=== PATIENT | female | born 1955 | race Caucasian/White ===

== ENCOUNTER 2020-10-27 15:31 | Emergency (ER) | payer OTHER, SELFPAY ==
[2020-10-27 15:46] VITALS: BP 101/61; PULSE 92; RESP 18; O2SAT 95
--- NOTE | 2020-10-27 15:50 | ED.GENADUL_ITS ---
Discharge Plan Disposition Patient Disposition: HOME Condition: Stable Discharge Details Clinical Impression: Sprain of foot, left, Sprain of ankle, left Primary Care Provider: Ana,Local ED Provider: Maggy Marmolejo Home Meds and New Rx's Prescriptions: Continued alprazolam [Xanax] 1 mg Tablet 1 mg PO BID PRNRF: 0 tramadol 50 mg Tablet 50 mg PO BID PRNRF: 0 Discharge Instructions Instructions: Ankle Sprain (ED), Foot Sprain (ED) Additional Instructions: Rest, ice, and elevate the affected area as much as possible. Take the tramadol that you have at home as needed and directed for pain. Wear the walking boot as much as possible and use the crutches to help with ambulation over the next few days. You can start to bear weight on your left foot as tolerated in a few days. Follow-up with your scheduled appointment with your primary care doctor this week for reevaluation and for referral to orthopedics if your symptoms do not improve or worsen. Return immediately to the emergency department if you develop any worsening or new concerning symptoms. Referrals: Jose Lockhart MD [ [facility] STAFF PHYSICIAN] - Discharge Data Discharge Physician: Maggy Marmolejo Medical Decision Making 65-year-old female presents with left foot and ankle pain after twisting her ankle on a wet spot on the floor yesterday She has tenderness and edema to the left dorsal lateral foot and lateral malleolus. There is no deformity. She has neurovascular intact. Patient cannot take Tylenol or ibuprofen due to hives. She is declining a dose of tramadol. She was referred for x-rays and given a dose of oxycodone. X-rays reviewed and negative. Patient states she is from the [facility] and does follow-up at [facility]. She has a follow-up appointment with her primary care doctor this week. Advised to discuss with him for any recommendations for follow-up with orthopedics there if symptoms do not improve or worsen. Instructed on the importance of RICE. Walking boot placed and crutches given. Medical Records Medical records reviewed: Yes I reviewed the patient's medical records. Imaging Data Radiologic Study: Radiologist's impression: XR Left Ankle Exam date and time: 10/27/2020 4:21 PM Age: 65 years old Clinical indication: Injury or trauma; Other: Twisted; Sprain or strain; Ankle; Left TECHNIQUE: Imaging protocol: XR Left ankle. Views: 3 or more views. COMPARISON: No relevant prior studies available. FINDINGS: Bones/joints: The ankle mortise joint is intact. There is no sign of malleolar fracture. Soft tissues: Normal. No soft tissue IMPRESSION: Normal ankle XR Left Foot Exam date and time: 10/27/2020 4:21 PM Age: 65 years old Clinical indication: Injury or trauma; Other: Twisted; Sprain or strain; Foot; Left TECHNIQUE: Imaging protocol: XR Left foot. Views: 3 or more views. COMPARISON: CR XR ANKLE LT COMPLETE 27/10/2020 16:44 FINDINGS: Bones/joints: Normal. No fracture or dislocation. No arthropathic change Soft tissues: . Mild soft tissue swelling is present over the dorsum of the forefoot. IMPRESSION: No evidence of bony trauma. HPI General Mode of arrival: ambulatory . Date/Time Provider Initiated Documentation: 10/27/20 15:50 . Limitations to Documentation: no limitations . Information obtained by: patient . HPI Narrative: Patient is a 65-year-old female presents with left foot and ankle pain after twisting her ankle yesterday . Patient states she slipped on a wet spot on the floor and inverted her left ankle. She has been having pain with weightbearing. She states she cannot take Tylenol or ibuprofen due to hives. She takes tramadol as needed and directed for restless leg but states she does not take this very often. Related Data Home Medications Medication Instructions Recorded Confirmed alprazolam [Xanax] 1 mg PO BID PRN 10/27/20 10/27/20 tramadol 50 mg PO BID PRN 10/27/20 10/27/20 Allergies Allergy/AdvReac Type Severity Reaction Status Date / Time acetaminophen Allergy Skin Rash Unverified 10/27/20 17:20 ibuprofen Allergy Skin Rash Unverified 10/27/20 17:20 Penicillins Allergy Skin Rash Unverified 10/27/20 15:56 phenobarbital Allergy Skin Rash Unverified 10/27/20 15:57 muscle relaxers Allergy Skin Rash Uncoded 10/27/20 15:56 Review of Systems All systems reviewed & are unremarkable except as noted in HPI and below PFSH Social History Smoking/Tobacco Use Status: Never Smoking risk assessment performed?: Yes Alcohol Intake: never Drug use: Never Exam Const General: cooperative, healthy appearing and no acute distress HENMT Head: normal to inspection Mouth: oral mucosae normal Eyes General: appearance normal, both eyes and all related structures Neck Neck: normal visual inspection Resp Effort & Inspection: normal respiratory effort and able to speak in complete sentences Cardio Rate: regular rate Skin General skin exam: no rashes or lesions noted Neuro General: patient alert, patient awake and patient oriented x3 Motor: muscle tone normal throughout Extrem Other: Tenderness to palpation and moderate edema to the left lateral dorsal foot and left lateral malleolus. There is no deformity. Left DP/PT pulses intact. No tenderness to palpation to left proximal leg. Psych Appearance: grossly normal Affect: normal affect
--- NOTE | 2020-10-27 16:15 | DI.RAD_ITS ---
Exam(s) XR FOOT LT COMPLETE EXAM: XR FOOT LT COMPLETE CLINICAL HISTORY: s/p twisting injury, r/o fx. TECHNIQUE: 2D digital imaging was performed. COMPARISON: No exams were available for comparison FINDINGS: There is no evidence of acute fracture or diastasis of the Lisfranc joint. Ossified density on the m edial aspect of the foot adjacent to the navicular tuberosity is most probably an accessory ossicle-s esamoid within the distal tibialis posterior tendon. IMPRESSION: No fracture evident. DATA REPOSITORY: RADIATION DOSE DELIVERED:
--- NOTE | 2020-10-27 16:15 | DI.RAD_ITS ---
Exam(s) XR ANKLE LT COMPLETE EXAM: XR ANKLE LT COMPLETE CLINICAL HISTORY: s/p twisting injury, r/o fx. TECHNIQUE: 2D digital imaging was performed. COMPARISON: No exams were available for comparison FINDINGS: No evidence of fracture or widening of the mortise. Talar dome unremarkable. Calcification is noted posteriorly at the insertion site of the Achilles on the posterior calcaneus. No evidence of osseou s tarsal coalition. Bone density is age-appropriate. IMPRESSION: No fracture evident. DATA REPOSITORY: RADIATION DOSE DELIVERED:
[2020-10-27] MEDS: oxyCODONE 5 MG TAB PO (16:28)
--- NOTE | 2020-10-27 17:10 | DI.VRAD_ITS ---
PROCEDURE INFORMATION: Exam: XR Left Foot Exam date and time: 10/27/2020 4:21 PM Age: 65 years old Clinical indication: Injury or trauma; Other: Twisted; Sprain or strain; Foot; Left TECHNIQUE: Imaging protocol: XR Left foot. Views: 3 or more views. COMPARISON: CR XR ANKLE LT COMPLETE 27/10/2020 16:44 FINDINGS: Bones/joints: Normal. No fracture or dislocation. No arthropathic change Soft tissues: . Mild soft tissue swelling is present over the dorsum of the forefoot. IMPRESSION: No evidence of bony trauma. Dictated and Authenticated by: Urbano Arevalo MD. Ordering:MARCI Winter MD
--- NOTE | 2020-10-27 17:11 | DI.VRAD_ITS ---
PROCEDURE INFORMATION: Exam: XR Left Ankle Exam date and time: 10/27/2020 4:21 PM Age: 65 years old Clinical indication: Injury or trauma; Other: Twisted; Sprain or strain; Ankle; Left TECHNIQUE: Imaging protocol: XR Left ankle. Views: 3 or more views. COMPARISON: No relevant prior studies available. FINDINGS: Bones/joints: The ankle mortise joint is intact. There is no sign of malleolar fracture. Soft tissues: Normal. No soft tissue IMPRESSION: Normal ankle. Dictated and Authenticated by: Urbano Arevalo MD. Ordering:MARCI Winter MD
== END 2020-10-27 18:50 | disposition home or self-care (01) ==
PROVIDERS: Emergency Provider Physician Assistant
DX: S93.692A Other sprain of left foot, initial encounter (principal); S93.492A Sprain of other ligament of left ankle, initial encounter; W18.40XA Slipping, tripping and stumbling without falling, unspecified, initial encounter
CPT/HCPCS: 29515; 99284; 73610; 73630; 99283

== ENCOUNTER 2021-01-17 16:52 | Emergency (ER) | payer MEDICARE, SELFPAY ==
--- NOTE | 2021-01-17 17:00 | DI.RAD_ITS ---
Exam(s) XR SHOULDER LT COMPLETE 2+V EXAM: XR SHOULDER LT COMPLETE 2+V CLINICAL HISTORY: Fall, R/O Fracture. TECHNIQUE: 2D digital imaging was performed of the left shoulder. Five images were obtained. AP, G rashey, Y-view and axillary views were obtained. COMPARISON: No exams were available for comparison FINDINGS: BONES: No acute fracture is present. No bony destructive lesion is seen. Osteopenia. JOINTS: No dislocation present. Mild degenerative changes at the acromioclavicular joint. SOFT TISSUE: Normal. IMPRESSION: No acute fracture or dislocation. DATA REPOSITORY: RADIATION DOSE DELIVERED:
--- NOTE | 2021-01-17 17:00 | DI.RAD_ITS ---
Exam(s) XR HUMERUS LT EXAM: XR HUMERUS LT CLINICAL HISTORY: Fall, R/O Fracture. TECHNIQUE: 2D digital imaging was performed of the left humerus. Two images were obtained. AP and lateral views were obtained. COMPARISON: No exams were available for comparison FINDINGS: BONES: No acute fracture is present. No bony destructive lesion is seen. Visualized portion of elbow and shoulder joints are unremarkable. SOFT TISSUE: Normal. IMPRESSION: No acute fracture or dislocation. DATA REPOSITORY: RADIATION DOSE DELIVERED:
[2021-01-17 17:03] VITALS: BP 130/72; PULSE 90; TEMP 36.3; O2SAT 94
--- NOTE | 2021-01-17 17:12 | ED.GENADUL_ITS ---
Discharge Plan Disposition Patient Disposition: HOME Condition: Stable Discharge Details Clinical Impression: Sprain of left shoulder Primary Care Provider: Ana,Local ED Provider: Mounika Ralph Home Meds and New Rx's Prescriptions: New tramadol 50 mg tablet 50 mg PO TID PRN (Reason: pain) Qty: 7 RF: 0 No Action alprazolam [Xanax] 1 mg Tablet 1 mg PO BID PRNRF: 0 tramadol 50 mg Tablet 50 mg PO BID PRNRF: 0 Discharge Instructions Instructions: Shoulder Sprain (ED) Additional Instructions: The xrays today do not show evidence for fracture or any broken bones at this time. Wear splint as needed for comfort when up and about. Rest, Ice, Compression, Elevation . If it continues to bother you in 1-2 weeks, please follow up with Orthopedics. Follow up with primary care provider in 3-5 days. Return to ED sooner if any worsening or concerns. Increase oral fluids. Referrals: Jorge He MD [ [facility] STAFF PHYSICIAN] - 2 weeks Medical Decision Making 65-year-old female presents to the ER with chief complaint of left shoulder left upper arm pain status post a slip and fall yesterday while in her kitchen. Patient states that she was wearing ice cleats and slipped on her linoleum kitchen floor landing on her left shoulder. She is complaining of left shoulder and left upper arm pain. Denies any neck pain no loss of consciousness. She is not taking any medications prior to arrival. No obvious deformity noted on exam patient is alert and oriented. No chest wall tenderness with palpation. No other associated symptoms. Imaging protocol: XR Left humerus. Views: 2 or more views. COMPARISON: No relevant images were readily available for comparison purposes. FINDINGS: Bones/joints: Osteopenia limits evaluation. There is no definite acute fracture or dislocation. Minimal degeneration of the acromioclavicular and glenohumeral joints. Soft tissues: Unremarkable. IMPRESSION: No acute findings. Thank you for allowing us to participate in the care of your patient. Dictated and Authenticated by: Miguel Franco DO Imaging protocol: XR Left shoulder. Views: 2 or more views. COMPARISON: CR XR HUMERUS LT 01/17/2021 5:27 PM FINDINGS: Bones/joints: No acute fracture or dislocation. Osteopenia which limits evaluation. Soft tissues: Slightly increased soft tissue density along the left shoulder/axillary region. IMPRESSION: 1. No acute fracture or dislocation. 2. Slightly increased soft tissue density seen along the left shoulder/axillary region. Query soft tissue edema or hematoma. Thank you for allowing us to participate in the care of your patient. Dictated and Authenticated by: Miguel Franco DO Discussed x-ray results patient verbalized understanding. Patient placed in a sling follow-up with Ortho if continued pain. Patient given tramadol here in the department. This text was generated using Embueation system, please disregard any oddities of phrase or misspellings. HPI General Mode of arrival: ambulatory . Date/Time Provider Initiated Documentation: 01/17/21 16:53 . Limitations to Documentation: no limitations . Information obtained by: patient, RN notes reviewed and old records reviewed . HPI Narrative: 65-year-old female presents to the ER with chief complaint of left shoulder left upper arm pain status post a slip and fall yesterday while in her kitchen. Patient states that she was wearing ice cleats and slipped on her linoleum kitchen floor landing on her left shoulder. She is complaining of left shoulder and left upper arm pain. Denies any neck pain no loss of consciousness. She is not taking any medications prior to arrival. No obvious deformity noted on exam patient is alert and oriented. No chest wall tenderness with palpation. No other associated symptoms. Related Data Home Medications Medication Instructions Recorded Confirmed alprazolam [Xanax] 1 mg PO BID PRN 10/27/20 01/17/21 tramadol 50 mg PO BID PRN 10/27/20 01/17/21 tramadol 50 mg PO TID PRN #7 tab 01/17/21 Previous Rx's Medication Instructions Recorded tramadol 50 mg PO TID PRN #7 tab 01/17/21 Allergies Allergy/AdvReac Type Severity Reaction Status Date / Time acetaminophen Allergy Skin Rash Unverified 01/17/21 17:07 ibuprofen Allergy Skin Rash Unverified 01/17/21 17:07 Penicillins Allergy Skin Rash Unverified 01/17/21 17:07 phenobarbital Allergy Skin Rash Unverified 01/17/21 17:07 muscle relaxers Allergy Skin Rash Uncoded 01/17/21 17:07 General Stated Complaint: Orthopedic ARMANDO: 3 Review of Systems All systems reviewed & are unremarkable except as noted in HPI and below ENT Ears, Nose, Mouth, and Throat: Denies neck pain Musculoskeletal Musculoskeletal: Reports as per HPI, Denies back pain, Denies deformity, Reports arthralgias (Left shoulder), Denies neck pain, Denies numbness and Denies tingling Neurologic Neurologic: Denies numbness and Denies tingling PFSH All Active Problems (Updated 01/17/21 @ 18:06 by Mounika Ralph) Sprain of foot, left (Acute) Sprain of ankle, left (Acute) Sprain of left shoulder (Acute) Social History Smoking/Tobacco Use Status: Never Smoking risk assessment performed?: Yes Alcohol Intake: never Drug use: Never Substance use type: does not use Do you feel safe at home: Yes Do you feel safe in your relationship?: Yes Exam Extrem General: normal to inspection Right upper extremity: normal to inspection Left upper extremity: normal to inspection, normal capillary refill and should er/upper arm (Distal CMS intact) Details: inspection abnormal, tenderness Location: of the proximal humerus and axillary nerve sensory function normal Course Vital Signs Vital signs: Vital Signs Temperature 36.3 C L 01/17/21 17:03 Pulse 90 01/17/21 17:03 Blood Pressure 130/72 01/17/21 17:03 Pulse Oximetry 94 01/17/21 17:03 Temperature 36.3 C L 01/17/21 17:03 Temperature Source Temporal Artery Scan 01/17/21 17:03 Pulse 90 01/17/21 17:03 Respiratory Effort Non-Labored 01/17/21 17:06 Blood Pressure 130/72 01/17/21 17:03 Blood Pressure Position Sitting 01/17/21 17:03 Pulse Oximetry 94 01/17/21 17:03 Oxygen Delivery Method Room Air 01/17/21 17:03 Oxygen Flow Rate 0 01/17/21 17:03 Pain Level 10 01/17/21 17:03
--- NOTE | 2021-01-17 18:04 | DI.VRAD_ITS ---
PROCEDURE INFORMATION: Exam: XR Left Humerus Exam date and time: 01/17/2021 5:12 PM Age: 65 years old Clinical indication: Patient HX: Fall 01/16/2021 left shoulder pain TECHNIQUE: Imaging protocol: XR Left humerus. Views: 2 or more views. COMPARISON: No relevant images were readily available for comparison purposes. FINDINGS: Bones/joints: Osteopenia limits evaluation. There is no definite acute fracture or dislocation. Minimal degeneration of the acromioclavicular and glenohumeral joints. Soft tissues: Unremarkable. IMPRESSION: No acute findings. Dictated and Authenticated by: Miguel Franco MD. Ordering:LANDY Ribera MD
--- NOTE | 2021-01-17 18:05 | DI.VRAD_ITS ---
PROCEDURE INFORMATION: Exam: XR Left Shoulder Exam date and time: 01/17/2021 5:12 PM Age: 65 years old Clinical indication: Other: Fall 01/16/2021 left shoulder pain TECHNIQUE: Imaging protocol: XR Left shoulder. Views: 2 or more views. COMPARISON: CR XR HUMERUS LT 01/17/2021 5:27 PM FINDINGS: Bones/joints: No acute fracture or dislocation. Osteopenia which limits evaluation. Soft tissues: Slightly increased soft tissue density along the left shoulder/axillary region. IMPRESSION: 1. No acute fracture or dislocation. 2. Slightly increased soft tissue density seen along the left shoulder/axillary region. Query soft tissue edema or hematoma. Dictated and Authenticated by: Miguel Franco MD. Ordering:LANDY Ribera MD
[2021-01-17] MEDS: traMADol 50 MG TAB PO (18:19)
[2021-01-17] MEDS: Lidocaine 5% Patch 1 PATCH TP (18:19)
[2021-01-17 18:39] VITALS: BP 130/72; PULSE 90; TEMP 36.3; O2SAT 94
== END 2021-01-17 18:47 | disposition home or self-care (01) ==
LOC: ER 18:27
PROVIDERS: Emergency Provider Registered Nurse Emergency
DX: S43.492A Other sprain of left shoulder joint, initial encounter (principal); W01.0XXA Fall on same level from slipping, tripping and stumbling without subsequent striking against object, initial encounter
CPT/HCPCS: 99284; 73030; 73060; 99283

== ENCOUNTER 2022-07-05 20:03 | Emergency (ER) | payer MEDICARE, MEDICAID, SELFPAY ==
[2022-07-05 20:08] VITALS: BP 147/65; PULSE 102; RESP 16; TEMP 36.7; O2SAT 97
--- NOTE | 2022-07-05 20:22 | ED.GENADUL_ITS ---
Discharge Plan Disposition Patient Disposition: Home Condition: Good Discharge Details Clinical Impression: Tick bite, Cellulitis of arm, right Primary Care Provider: Ana,Local ED Provider: Dariel Soni Home Meds and New Rx's Prescriptions: New doxycycline hyclate 100 mg tablet 100 mg PO BID 14 Days Qty: 28 0RF No Action alprazolam [Xanax] 1 mg Tablet 1 mg PO BID PRN tramadol 50 mg Tablet 50 mg PO BID PRN tramadol 50 mg tablet 50 mg PO TID PRN (Reason: pain) Qty: 7 0RF Discharge Instructions Instructions: Cellulitis (ED), Tick Bite (ED) Additional Instructions: At this time you have evidence of cellulitis on your right elbow which is likely secondary to the tick bite and erythema migrans. Please take the doxycycline as directed. Make sure to take it with food otherwise it can cause nausea and vomiting. Please avoid any dairy or calcium when you are eating while on doxycycline as this can limit the effectiveness of doxycycline. If you notice any worsening of your symptoms, or any new symptoms such as spreading redness, vomiting, diarrhea, fever, chills, shortness of breath, chest pain, numbness, weakness, or fainting , please return immediately to the emergency department for reevaluation. Please follow up with your primary care provider as soon as possible for reassessment and reevaluation. As always, it was a pleasure participating in your medical care today. Medical Decision Making 67-year-old female presents today for rash on her right elbow. Patient had a tick on her right elbow, she was uncertain as to the exact type. This was about 2 to 3 days ago. She did take a 200 mg prophylactic dose of doxycycline at that time, but since then she has developed a rash on her right arm. She denies any systemic symptoms of fever or chills. She denies any significant pain with movement of the elbow. She denies any other complaints at this time. No other modifying factors. Physical exam demonstrates an area of erythema on the lateral aspect of the right elbow, diameter of around 6 cm. No fluctuance or abscess or induration. Concern for early erythema migrans versus cellulitis. Scab was removed and there is no evidence of a retained head. We will give an extended course of doxycycline. Patient will be discharged. Discussed red flags for which to return. I have extensively reviewed the treatment plan and discharge instruct ions with the patient. I have addressed all patient concerns at this time. The patient was made aware of what symptoms to monitor for that would warrant a return to the emergency department. Discussed the plan with the patient, they demonstrate verbal understanding and agreement with our assessment and plan at this time. The documentation in this chart was dictated using Scale[employer] dictation software. Please excuse any dictation errors. HPI General Date/Time Provider Initiated Documentation: 07/05/22 20:12 . HPI Narrative: 67-year-old female presents today for rash on her right elbow. Patient had a tick on her right elbow, she was uncertain as to the exact type. This was about 2 to 3 days ago. She did take a 200 mg prophylactic dose of doxycycline at that time, but since then she has developed a rash on her right arm. She denies any systemic symptoms of fever or chills. She denies any significant pain with movement of the elbow. She denies any other complaints at this time. No other modifying factors. Related Data Home Medications Medication Instructions Recorded Confirmed alprazolam 1 mg tablet (Xanax) 1 mg PO BID PRN 10/27/20 07/05/22 tramadol 50 mg tablet 50 mg PO BID PRN 10/27/20 07/05/22 tramadol 50 mg tablet 50 mg PO TID PRN pain #7 tabs 01/17/21 doxycycline hyclate 100 mg tablet 100 mg PO BID 14 days #28 tabs 07/05/22 Previous Rx's Medication Instructions Recorded tramadol 50 mg tablet 50 mg PO TID PRN pain #7 tabs 01/17/21 doxycycline hyclate 100 mg tablet 100 mg PO BID 14 days #28 tabs 07/05/22 Allergies Allergy/AdvReac Type Severity Reaction Status Date / Time acetaminophen Allergy Skin Rash Unverified 07/05/22 20:13 ibuprofen Allergy Skin Rash Unverified 07/05/22 20:13 Penicillins Allergy Skin Rash Unverified 07/05/22 20:13 phenobarbital Allergy Skin Rash Unverified 07/05/22 20:13 muscle relaxers Allergy Skin Rash Uncoded 07/05/22 20:13 General Stated Complaint: AnimalBite ARMANDO: 3 Review of Systems All systems reviewed & are unremarkable except as noted in HPI and below PFSH All Active Problems Sprain of foot, left (Acute) Sprain of ankle, left (Acute) Sprain of left shoulder (Acute) Tick bite (Acute) Cellulitis of arm, right (Acute) Social History Smoking/Tobacco Use Status: Never Smoking risk assessment performed?: Yes Alcohol Intake: never Drug use: Never Substance use type: does not use Do you feel safe at home: Yes Do you feel safe in your relationship?: Yes Exam Narrative Exam Narrative: 1.Const: Well-nourished, Well-developed, appearing stated age 2.Eyes: PERRL, no conjunctival injection, and symmetrical lids. 3.ENT: Atraumatic external nose and ears. Moist MM. Neck: Symmetric, trachea midline, No thyromegaly. 4.CVS: +S1/S2, No murmurs or gallops. Peripheral pulses 2+ and equal in all extremities. Brisk capillary refill in all extremities. 5.RESP: Unlabored respiratory effort. Clear to auscultation bilaterally. No wheezes rales or rhonchi 6.GI: Soft, Nontender/Nondistended, No hepatosplenomegaly. No guarding or rebound. 7.MSK: Normocephalic/Atraumatic, Extremities w/o deformity or ttp No cyanosis or clubbing, Normal movement of all extremities 8.Skin: Patient's right elbow on the skin on the lateral aspect demonstrates central erythematous aspect, and then surrounding erythema with a diameter of roughly 5 cm in a circular fashion. No clear evidence of erythema migrans with a central clearing male. No fluctuance, or significant induration. There was a small scab which was subsequently removed and there is no evidence of retained head of foreign body otherwise. 9.Neuro: header setup operator II-XII grossly intact. Sensation grossly intact, no focal neurol ogic deficits. 10.Psych: (AAO) x3. Appropriate mood and affect Course Vital Signs Vital signs: Vital Signs Temperature 36.7 C 07/05/22 20:08 Pulse 102 H 07/05/22 20:08 Respiratory Rate 16 07/05/22 20:08 Blood Pressure 147/65 H 07/05/22 20:08 Pulse Oximetry 97 07/05/22 20:08 Temperature 36.7 C 07/05/22 20:08 Temperature Source Skin 07/05/22 20:08 Pulse 102 H 07/05/22 20:08 Respiratory Rate 16 07/05/22 20:08 Respiratory Effort Normal 07/05/22 20:11 Blood Pressure 147/65 H 07/05/22 20:08 Pulse Oximetry 97 07/05/22 20:08
[2022-07-05] MEDS: Doxycycline Hyclate 100 MG, 2 CAPS/BTL PO (20:26)
[2022-07-05] MEDS: Doxycycline Hyclate 100 MG CAP PO (20:26)
== END 2022-07-05 20:29 | disposition home or self-care (01) ==
PROVIDERS: Emergency Provider Student in an Organized Health Care Education/Training Program
DX: L03.113 Cellulitis of right upper limb (principal); S40.861A Insect bite (nonvenomous) of right upper arm, initial encounter; W57.XXXA Bitten or stung by nonvenomous insect and other nonvenomous arthropods, initial encounter
CPT/HCPCS: 99283; 99284

== ENCOUNTER 2022-08-24 01:08 | Emergency (ER) | payer MEDICARE, MEDICAID, SELFPAY ==
[2022-08-24 01:24] VITALS: BP 129/55; PULSE 88; RESP 14; TEMP 36.8; O2SAT 95
--- NOTE | 2022-08-24 01:59 | ED.GENADUL_ITS ---
Discharge Plan Disposition Patient Disposition: Home Discharge Details Clinical Impression: Bloody diarrhea Primary Care Provider: Unknown,Unknown ED Provider: Dianne Kat Home Meds and New Rx's Prescriptions: Continued alprazolam [Xanax] 1 mg Tablet 1 mg PO BID PRN tramadol 50 mg Tablet 50 mg PO BID PRN tramadol 50 mg tablet 50 mg PO TID PRN (Reason: pain) Qty: 7 0RF Discharge Instructions Instructions: Acute Diarrhea (ED) Additional Instructions: Return to ED for fever of 100.4 or above, severe belly pain, dizziness or lightheadedness, etc. Bring the stool sample back to the lab as soon as possible. Refrigerate immediately after collection and bring to lab BILLIE. Do not use any more Pep[toBismol until we see your stool results. Discharge Data Discharge Date/Time-TO BE ENTERED AT DEPARTURE: 08/24/22 04:10 Medical Decision Making The patient took a large amount of Pepto-Bismol earlier today before coming in. It was able to measure what was left in the bottle and calculate the amount of bismuth subsalicylate she had taken. [facility] was able to convert this to aspirin and calculated that she had taken 47.5 mg/kg. Toxicity is 150 mg/kg. As long as her salicylate level was negative they did not want me to pursue this further. She had no bowel movements in the ED but was given a boat and orders so that she could bring a sample to the lab. She will get a recheck with her primary care doc today or tomorrow. She will return for severe belly pain, large amounts of bright red blood per rectum, dizziness, lightheadedness, any other concerns. Lab Data Lab results reviewed: Yes I reviewed the patient's lab results. Lab results narrative: The patient's hemoglobin and hematocrit as well as VBG were normal. Her magnesium was 1.6 and she got some mag oxide. Potassium was 3 and she got 40 mEq of this. Her platelets were 75,000. I have no other old number for comparison but told the patient she needed to follow-up with her PCP on this. She tells me she drinks rare alcohol only. Her AST was 122 and her alk phos was 169. Her salicylate level was 15.7, in the therapeutic range HPI General Date/Time Provider Initiated Documentation: 08/24/22 01:48 . HPI Narrative: This 67-year-old female patient presents with a chief complaint of bloody diarrhea. The patient reports that she had diarrhea started 3 days ago. It was initially brown and then blood-tinged and now is more bloody. She has been going multiple times per day and her stool is unformed. There has been no recent travel out of the country, camping, or drinking from streams. She does report that she was on antibiotics 1 to 2 weeks ago. She said it was related to a bug bite so I suspect this may have been doxycycline. Patient denies abdominal pain and has no nausea or vomiting. There has been no fever or chills. There is no family history of Crohn's disease or colitis. He has no epistaxis or hematuria. There is no unusual bruising or rash. She is on no anticoagulant medication. Related Data Home Medications Medication Instructions Recorded Confirmed alprazolam 1 mg tablet (Xanax) 1 mg PO BID PRN 10/27/20 08/24/22 tramadol 50 mg tablet 50 mg PO BID PRN 10/27/20 08/24/22 tramadol 50 mg tablet 50 mg PO TID PRN pain #7 tabs 01/17/21 08/24/22 Previous Rx's Medication Instructions Recorded tramadol 50 mg tablet 50 mg PO TID PRN pain #7 tabs 01/17/21 Allergies Allergy/AdvReac Type Severity Reaction Status Date / Time acetaminophen Allergy Skin Rash Unverified 08/24/22 01:29 ibuprofen Allergy Skin Rash Unverified 08/24/22 01:29 Penicillins Allergy Skin Rash Unverified 08/24/22 01:29 phenobarbital Allergy Skin Rash Unverified 08/24/22 01:29 muscle relaxers Allergy Skin Rash Uncoded 08/24/22 01:29 General Stated Complaint: Nausea/Vomit/Diar ARMANDO: 3 Review of Systems Constitutional Constitutional: Denies chills, Denies fever(s), Denies headache(s) and Denies weakness Eyes Eyes: Denies diplopia and Reports other (no redness) ENT Ears, Nose, Mouth, and Throat: Denies otalgia, Denies headache(s), Denies nasal congestion, Denies nasal discharge, Denies neck pain and Denies sore throat Cardiovascular Cardiovascular: Denies chest pain, Denies palpitations and Denies dyspnea Respiratory Respiratory: Denies cough and Denies dyspnea Gastrointestinal Gastrointestinal: Denies abdominal pain, Reports hematochezia, Reports diarrhea, Denies nausea and Denies vomiting Genitourinary Genitourinary: Denies dysuria Musculoskeletal Musculoskeletal: Denies myalgias, Denies muscle weakness, Denies neck pain, Denies numbness and Reports other (edema) Integumentary/Breasts Skin/Breast: Denies change in pigmentation and Denies rash Neurologic Neurologic: Denies headache(s), Denies numbness and Denies weakness Endocrine Endocrine: Denies palpitations PFSH All Active Problems Sprain of foot, left (Acute) Sprain of ankle, left (Acute) Sprain of left shoulder (Acute) Bloody diarrhea (Acute) Social History Smoking/Tobacco Use Status: Never Smoking risk assessment performed?: Yes Alcohol Intake: never Drug use: Never Substance use type: does not use Do you feel safe at home: Yes Do you feel safe in your relationship?: Yes Exam Const General: no acute distress, well developed, well groomed and not in acute distress Nutritional Appearance: well nourished Orientation: alert and oriented x3 [facility] Head: normocephalic and atraumatic Ears: external ears normal Mouth: oropharynx normal and moist mucous membranes Throat: posterior oropharynx normal Eyes Conjunctivae: conjunctivae normal Neck Neck: full ROM and supple Chest Chest: normal inspection of the chest Resp Effort & Inspection: normal respiratory effort Auscultation: clear to auscultation bilaterally Cardio Rate: regular rate Rhythm: regular rhythm Heart Sounds: no murmurs and no rubs GI Inspection: normal to inspection Palpation: soft, nontender and other (non distended) Auscultation: normal bowel sounds Rectal Exam - female: other (Deferred) Skin General skin exam: no rashes or lesions noted and other (pink, warm, dry) Neuro General: patient alert, patient awake and patient oriented x3 Speech: speech normal Motor: other (DAMICO) Sensory Exam: no sensory deficits noted Extrem General: normal to inspection, full ROM and pedal edema present Psych Mental Status: mental status grossly normal Speech and Movement: speech and movement normal Affect: normal affect Course Vital Signs Vital signs: Vital Signs Temperature 36.8 C 08/24/22 01:24 Pulse 88 08/24/22 01:24 Respiratory Rate 14 08/24/22 01:24 Blood Pressure 129/55 L 08/24/22 01:24 Pulse Oximetry 95 08/24/22 01:24 Temperature 36.8 C 08/24/22 01:24 Temperature Source Temporal Artery Scan 08/24/22 01:24 Pulse 88 08/24/22 01:24 Respiratory Rate 14 08/24/22 01:24 Respiratory Effort Normal, Non-Labored 08/24/22 01:30 Blood Pressure 129/55 L 08/24/22 01:24 Blood Pressure Position Supine 08/24/22 01:24 Pulse Oximetry 95 08/24/22 01:24 Oxygen Delivery Method Room Air 08/24/22 01:24 Oxygen Flow Rate 0 08/24/22 01:24
[2022-08-24] MEDS: Normal Saline 1,000 ML 1000 ML IV (02:30)
[2022-08-24 02:33] LABS: BE (Venous) 2 mmol/L (-2-3); HCO3 (Venous) 26 mmol/L (23-28); O2 Sat (Venous) 74 %; TCO2 (Venous) 23 mmol/L (24-29); pCO2 (Venous) 41 mmHg (41-51); pH (Venous) 7.42 (7.31-7.41); pO2 (Venous) 40 mmHg
[2022-08-24 02:45] LABS: Salicylate 15.7 mg/dL (<2.8)
[2022-08-24 02:48] LABS: Abs Immature Grans 0.21 10^3/uL (0.0-0.06); Absolute Basophil Count 0.08 10^3/uL (0.0-0.2); Absolute Lymphocyte Count 2.42 10^3/uL (1.2-3.4); Absolute Monocyte Count 0.44 10^3/uL (0.1-0.8); Absolute Neutrophil Count 5.05 10^3/uL (1.2-6.7); Basophils % 0.9; Eosinophils % 3.5; HCT 42.1 % (36.0-46.0); HGB 14.6 g/dL (11.2-15.7); Immature Grans % 2.5; Lymphocytes % 28.5; MCH 32.4 pg (27.0-33.0); MCHC 34.7 % (32.0-36.0); MCV 93 fL (80-95); MPV 9.3 fL (8.0-11.0); Monocytes % 5.2; Neutrophils % 59.4; Platelet Count 75 10^3/uL (130-400); RBC 4.51 10^6/uL (3.93-5.22); RDW 14.2 % (11.7-14.6); RDW-SD 49.6 fL
[2022-08-24 02:51] LABS: ALT 58 U/L (14-59); AST 122 U/L (15-37); Albumin 3.7 g/dL (3.4-5.0); Alkaline Phosphatase 169 U/L (46-116); Anion Gap 12.4 mmol/L (3-11); BUN 4 mg/dL (7-18); Bilirubin, Total 0.9 mg/dL (0.2-1.0); CO2 25.6 mmol/L (21.0-32.0); CREATININE 0.5 mg/dL (0.55-1.02); Calcium 8.8 mg/dL (8.5-10.1); Chloride 102 mmol/L (98-107); Estimated GFR 101.46 (mL/min/1.73m2); Glucose 81 mg/dL (74-106); Magnesium 1.6 mg/dL (1.8-2.4); Sodium 140 mmol/L (136-145)
[2022-08-24] MEDS: Magnesium Oxide 400 MG TAB PO (03:30)
[2022-08-24] MEDS: Potassium Chloride 20 MEQ TABCR 40 MEQ PO (03:30)
[2022-08-24 03:32] VITALS: BP 131/62; PULSE 93; RESP 14; O2SAT 95
--- NOTE | 2022-08-24 06:08 | NUR.NOTE ---
Referral to Care Management to [place] [facility] [place]Nursing Note:
--- NOTE | 2022-08-24 08:17 | NUR.NOTE ---
Nursing Note: Accessed pt chart to get the salicylates level for Poison Control. Level was given to them along with discharge information.
== END 2022-08-24 04:10 | disposition home or self-care (01) ==
PROVIDERS: Emergency Provider Emergency Medicine
DX: R19.7 Diarrhea, unspecified (principal); K62.5 Hemorrhage of anus and rectum; Z79.899 Other long term (current) drug therapy
CPT/HCPCS: 36415; 80053; 82805; 96360; 99283; 80329; 83735; 83930; 85025